=== PATIENT | female | born 1935 | race Caucasian/White ===

== ENCOUNTER 2018-11-10 13:27 | Observation (INO) ==
--- NOTE | 2018-11-10 16:40 | Internal Med History&Physical ---
Date of Encounter: 11/10/18 Time of Encounter: 16:40 Internal Medicine - H&P: HPI Chief complaint: Fall.Fracture of knee Admitted From: Intrahospital Transfer Plans for Post Hospital Care: Transfer Inp Rehab Fac History of present illness: Ms. SARABIA is a 82 year old female patient with history of hypertension, colon cancer status post colostomy in remission, seizure was transferred from [place] [facility] after finding bilateral knee fracture after having fall today morning. Patient had rolled down to bed and landed on knee when trying to get up but did not lose any consciousness. Her granddaughter rolled her up to the bed and she did not walk since then called EMS. EMS brought to [place] [facility] where initial investigation done with CT knee with concern of fracture bilaterally therefore called orthopedic surgeon at [facility] who accepted the patient. Initial lab at [place] with leukocytosis, hypokalemia. Upon my evaluation patient appeared quite comfortable complaining of knee pain otherwise no acute distress. Patient denies fever chills nausea vomiting headache dizziness chest pain short of breath abdominal pain diarrhea. Patient had intermittent cough with yellowish sputum. Patient had diarrhea 1 week ago but now resolved completely. Past Med Surg Social Fam HX - Family History Father Living Status: Hx Family Cardiac Disorders: Yes Internal Medicine - H&P: Meds Allergy/AdvReac Type Severity Reaction Status Date / Time Penicillins Allergy Hives Verified 11/10/18 16:25 Sulfa (Sulfonamide AdvReac Nausea Verified 11/10/18 16:25 Antibiotics) All Systems PM: A 10-system review of systems was performed and is negative for pertinent findings except as documented above in the HPI. - Constitutional Exam: General appearance: No acute distress, A&O X 3 Head exam: Atraumatic Eye exam: EOMI, PERRLA ENT exam: Moist oral mucosa Neck nontender, supple Respiratory exam: Clear to auscultation bilaterally no wheezes crackles or rales Cardiovascular exam: Regular rate and rhythm, no systolic murmur Abdominal exam: Soft, nontender, nondistended, positive bowel sounds Extremities exam: No calf tenderness, no pedal edema Present. Bilateral knee- swelling tenderness more on the right side with limited range of motion. Peripheral pulses palpable and equal. Lower extremity sensation intact Skin-no rash, warm, dry, a small superficial skin ulceration on right foot and right thigh-as per patient she has been scratching due to bug bite concern Neurological exam: Alert, awake, oriented 3, CN II-XII intact, no focal deficits. No facial droop. Normal speech. - Assessment and Plan (1) Knee fracture Current Visit: Yes Status: Acute Assessment and plan: Bilateral knee fracture after mechanical fall. CT of knee done it [place]. Patient did not loss consciousness. Patient was transferred from [facility] to [place] after getting accepted by our on-call orthopedic surgeon. Bedrest, fall precaution, pain management. Notified orthopedic surgeon. No plan for urgent surgery therefore will start cardiac diet. Possible surgical intervention on Monday therefore will keep patient nothing by mouth after Monday midnight. Will give IV fluid while patient nothing by mouth. (2) Hypokalemia Current Visit: Yes Status: Acute Assessment and plan: Potassium was 2.5 at [place] and got replaced. Will repeat BMP. Magnesium level also ordered. Potassium replacement if needed (3) Hypertension Current Visit: Yes Status: Acute Assessment and plan: High blood pressure. Will resume home medicine. Could also be due to underlying pain. Close monitoring of blood pressure Qualifiers: Hypertension type: unspecified Qualified Code(s): I10 - Essential (primary) hypertension (4) Leukocytosis Current Visit: Yes Status: Acute Assessment and plan: Based on [place] lab. Patient also has intermittent cough therefore chest x-ray will be ordered. Will consider antibiotic if any concern for pneumonia. Patient denies history of COPD. Incentive spirometry. DuoNeb and oxygen supplementation as needed Qualifiers: Leukocytosis type: unspecified Qualified Code(s): D72.829 - Elevated white blood cell count, unspecified (5) Hyperglycemia Current Visit: Yes Status: Acute Assessment and plan: Patient denies history of diabetes mellitus. High blood glucose level that could be due to a stress. Hemoglobin A1c, SSI, Accu-Chek ordered. (6) History of seizure Current Visit: Yes Status: Acute Assessment and plan: No active seizure. Continue home medicine (7) History of colon cancer Current Visit: Yes Status: Acute Assessment and plan: Status post colectomy and patient is on colostomy bag. In remission. Follow oncologist regularly yearly basis. Patient is still has port-therefore asked to discuss with oncologists about removal after discharge (8) DVT prophylaxis Current Visit: Yes Status: Acute Assessment and plan: Heparin subcutaneous. - Time Spent With Patient Total time spent is greater than 50% in coordination of care (as documented) at patient's floor/unit and/or counseling patient: 25 - 35 minutes
[2018-11-10] MEDS ORDERED: Ondansetron 4 MG/2 ML VIAL IVP PRN (17:06)
[2018-11-10] MEDS ORDERED: Naloxone 0.4 MG/ML INJ IVP PRN (17:06)
[2018-11-10] MEDS ORDERED: Ipratropium/Albuterol Neb 3 ML IH PRN (17:26)
[2018-11-10] MEDS ORDERED: Dextrose Gel 15 GM/37.5 ML TUBE PO PRN ×2 (17:27)
[2018-11-10] MEDS ORDERED: *HR* Dextrose 50 % in Water (Syg) 50 ML SYRINGE IVP PRN (17:27)
[2018-11-10] MEDS ORDERED: D5% in Water 1,000 ML IVC PRN (17:27)
[2018-11-10 17:58] LABS: Basophils % 0.2 %; Eosinophils % 0.1 %; Hematocrit 34.3 % (35.3-44.9); Hemoglobin 11.9 g/dL (11.5-15.4); Immature Granulocytes % 0.4 % (0-4); Lymphocytes # 0.5 K/mcL (0.6-4.6); Lymphocytes % 3.4 %; Mean Corpuscular HGB Conc 34.7 g/dL (31.6-35.5); Mean Corpuscular Hemoglobin 31.4 pg (28.0-33.3); Mean Corpuscular Volume 90.5 fL (83.0-100.0); Mean Platelet Volume 11.3 fL (9.4-12.4); Monocytes # 0.8 K/mcL (0.0-1.3); Monocytes % 5.1 %; Neutrophils # 13.6 K/mcL (1.6-8.9); Platelet Count 232 K/mcL (140-400); Red Blood Count 3.79 M/mcL (3.82-4.97); Red Cell Distribution Width 13.5 % (11.5-14.5); Segmented Neutrophils % 90.8 %
[2018-11-10 18:05] LABS: INR 1.1; Prothrombin Time 12.2 Seconds (9.4-12.1)
[2018-11-10 18:08] LABS: Activated Partial Thrombo Time 28.3 Seconds (26.0-36.0)
[2018-11-10 18:12] LABS: BUN/Creatinine Ratio 21 (6-26); Blood Urea Nitrogen 14 mg/dL (8-23); Calcium 8.7 mg/dL (8.6-10.3); Carbon Dioxide 24 mEq/L (23-29); Chloride 107 mEq/L (98-107); Glucose 121 mg/dL (70-105); Osmolality,Calculated 300 (280-300); Potassium 2.6 mEq/L (3.5-5.1); Sodium 144 mEq/L (136-145); eGFR For African Americans > 60 (> 60); eGFR For Non-African Americans > 60 (> 60)
[2018-11-10] MEDS: Acetaminophen 325 MG TABLET PO PRN (20:37)
[2018-11-10] MEDS: cloNIDine HCl 0.1 MG TABLET PO SCH (20:37)
[2018-11-10] MEDS: *HR* Heparin 5,000 UNIT/ML VIAL SQ SCH (20:38)
[2018-11-10] MEDS: levETIRAcetam 250 MG TABLET PO SCH (20:38)
[2018-11-10 21:09] LABS: Bilirubin,Urine Small (Negative); Blood,Urine Large (Negative); Clarity,Urine Clear (Clear); Color,Urine Yellow (Yellow); Glucose,Urine (UA) Normal (Normal); Ketones,Urine Negative (Negative); Leukocyte Esterase,Urine Small (Negative); Nitrite,Urine Negative (Negative); Protein,Urine 100 mg/dL (Neg-Trace); Specific Gravity,Urine 1.018 (1.010-1.025); Urobilinogen,Urine Normal (Normal)
[2018-11-10 21:11] LABS: Hyaline Casts,Urine None Seen per lpf (None-Few); WBC,Urine 15-30 per hpf (0-3)
[2018-11-10 21:19] LABS: Bacteria,Urine Few per hpf (None-Few); RBC,Urine 30-50 per hpf (0-3); Squamous Epithelial Cell,Urine Few per lpf (None-Few)
[2018-11-10] MEDS: Insulin LISPRO 300 UNITS/3 ML VIAL SQ SCH (21:51)
[2018-11-10] MEDS: *HR* OxyCODONE Oral Soln 5 MG/5 ML UD.LIQ PO PRN (23:58)
[2018-11-11] MEDS: *HR* Heparin 5,000 UNIT/ML VIAL SQ SCH ×3 (06:01→22:11)
[2018-11-11 06:17] LABS: Basophils % 0.2 %; Eosinophils # 0.1 K/mcL (0.0-0.6); Eosinophils % 0.9 %; Hematocrit 30.6 % (35.3-44.9); Immature Granulocytes % 0.5 % (0-4); Lymphocytes # 0.8 K/mcL (0.6-4.6); Lymphocytes % 7.3 %; Mean Corpuscular Hemoglobin 30.4 pg (28.0-33.3); Mean Corpuscular Volume 92.2 fL (83.0-100.0); Mean Platelet Volume 11.2 fL (9.4-12.4); Monocytes # 0.8 K/mcL (0.0-1.3); Monocytes % 7.4 %; Neutrophils # 8.9 K/mcL (1.6-8.9); Platelet Count 187 K/mcL (140-400); Red Blood Count 3.32 M/mcL (3.82-4.97); Red Cell Distribution Width 13.8 % (11.5-14.5); Segmented Neutrophils % 83.7 %; White Blood Count 10.6 K/mcL (4.3-11.1)
[2018-11-11 06:20] LABS: Hemoglobin 10.1 g/dL (11.5-15.4)
[2018-11-11 06:51] LABS: BUN/Creatinine Ratio 22 (6-26); Blood Urea Nitrogen 21 mg/dL (8-23); Calcium 7.7 mg/dL (8.6-10.3); Carbon Dioxide 25 mEq/L (23-29); Chloride 105 mEq/L (98-107); Glucose 108 mg/dL (70-105); Osmolality,Calculated 300 (280-300); Potassium 2.5 mEq/L (3.5-5.1); Sodium 143 mEq/L (136-145); eGFR For African Americans > 60 (> 60); eGFR For Non-African Americans 55 (> 60)
[2018-11-11] MEDS: Insulin LISPRO 300 UNITS/3 ML VIAL SQ SCH ×3 (07:35→16:40)
--- NOTE | 2018-11-11 07:36 | Orthopedic Consult Note ---
Date of Encounter: 11/11/18 Time of Encounter: 07:34 Assessment and Plan (1) Tibial plateau fracture Current Visit: Yes Status: Acute I did have a long discussion with the patient regarding the diagnosis. She has bilateral tibial plateau fractures with minimal impaction on the right. Given the patient's age and activity level recommendations for nonoperative management in the form of nonweightbearing on the bilateral lower extremities and knee immo bilizers. She will be bed to chair and can pivot, but no ambulation at this point. Consulted physical and occupational therapy and I anticipate the need for rehabilitation facility upon discharge. Follow-up in one week for repeat x- rays of the bilateral knees or sooner if needed. She can follow-up sooner for any new or worsening concerns before then. I have reviewed each of the pertinent components of this chart and any other pertinent medical component(s) including but not limited to pertinent application of the chief complaint, history of present illness, current medication, medical history, allergies, family history, medical history, surgical history, social history, review of systems, vital signs, and any other portion of the pertinent patient medical record directly or indirectly involved with this patient care that is pertinent based on my medical decision process. STEFANI Oneill Qualifiers: Qualified Code(s): S82.143A - Displaced bicondylar fracture of unspecified tibia, initial encounter for closed fracture History of Present Illness HPI: Ms. SARABIA is a 82 year old female admitted to the hospitalist. She had a fall yesterday while trying to get out of bed and sustained bilateral tibial plateau fractures. She has sharp and achy pains localized to the bilateral knees, worse with use and movement and better with rest. Pain is currently well controlled. She denies any other pains. She denies numbness, tingling, or any other associated signs or symptoms or modifying factors otherwise. Past Med Surg Social Fam HX - Past Medical History Medical history: GERD, hypertension, seizures Additional medical history: colon cancer - Past Surgical History Surgical History: colostomy Additional surgical history: port - Social History Smoking Status: Never smoker Smokeless Tobacco Status: No Alcohol use: none Drug use: none - Family History Father Living Status: Hx Family Cardiac Disorders: Yes Medications and Allergies Cyanocobalamin (Vitamin B-12) [Vitamin B-12] 1,000 mcg PO DAILY 11/10/18 [His tory] Ferrous Sulfate [Iron] 325 mg PO DAILY 11/10/18 [History] Fluticasone Propionate Nasal [Flonase] 1 spray .ROUTE DAILY 11/10/18 [History] Lisinopril [Zestril] 20 mg PO BID 11/10/18 [History] Magnesium Oxide [Magnesium] 400 mg PO BID 11/10/18 [History] Metoprolol Tartrate [Lopressor] 25 mg PO BID 11/10/18 [History] Pantoprazole Sodium [Protonix] 40 mg PO DAILY 11/10/18 [History] amLODIPine [Norvasc] 10 mg PO DAILY 11/10/18 [History] cloNIDine HCl [CloNIDine HCl] 0.1 mg PO BID 11/10/18 [History] levETIRAcetam [Keppra] 250 mg PO BID 11/10/18 [History] Allergy/AdvReac Type Severity Reaction Status Date / Time Penicillins Allergy Hives Verified 11/10/18 16:25 Sulfa (Sulfonamide AdvReac Nausea Verified 11/10/18 16:25 Antibiotics) All Systems Reviewed: Constitutional -The patient denies any fevers, chills, or feelings of illness Neurologic -The patient denies any numbness, tingling, or burning pains Physical Exam - Constitutional Vitals: Temp Pulse Resp BP Pulse Ox 99.0 F 66 18 131/64 88 11/11/18 06:55 11/11/18 06:55 11/11/18 06:55 11/11/18 06:55 11/11/18 06:55 Constitutional -Vitals reviewed -The patient is well developed and well nourished. -Mood is pleasant. -The patient is well groomed. Psychiatric -The patient is fully alert and oriented x 3. Respiratory: -Respiratory effort normal Abdomen: -Soft abdomen -Non tender -Non distended: Left upper extremity: -No deformities. The overlying skin is intact. No obvious signs of acute trauma. -No tenderness to palpation throughout. -No significant pain with passive motion of the shoulder, elbow, wrist, and fingers within the limits of the bed. -Able to make an "OK" sign, cross the index and long fingers, and extend the thumb. -Sensation grossly intact to light touch throughout the median, radial, and ulnar distributions. -Radial pulse is present; Fingers have good capillary refill. Right upper extremity: -No deformities. The overlying skin is intact. No obvious signs of acute trauma. -No tenderness to palpation throughout. -No significant pain with passive motion of the shoulder, elbow, wrist, and fingers within the limits of the bed. -Able to make an "OK" sign, cross the index and long fingers, and extend the thumb. -Sensation grossly intact to light touch throughout the median, radial, and ulnar distributions. -Radial pulse is present; Fingers have good capillary refill. Left lower extremity: -No deformities. The overlying skin is intact. Moderate swelling of the knee. -Tenderness to palpation over the knee -Like compartments are soft and compressible. -No pain with passive motion of the hip, ankle, and toes within the limits of the bed. -Able to dorsiflex and plantarflex the ankle and toes. -Sensation is grossly intact to light touch throughout the sural, saphenous, superficial peroneal, and deep peroneal distributions. -Toes have good capillary refill. Right lower extremity: -No deformities. The overlying skin is intact. Moderate swelling of the knee. -Tenderness to palpation over the knee -Like compartments are soft and compressible. -No pain with passive motion of the hip, ankle, and toes within the limits of the bed. -Able to dorsiflex and plantarflex the ankle and toes. -Sensation is grossly intact to light touch throughout the sural, saphenous, superficial peroneal, and deep peroneal distributions. -Toes have good capillary refill. Diagnostic Imaging: I did personally review and interpret x-rays of the bilateral knees and CT scans obtained from the referring facility. On the right she has a subtle minimally displaced lateral plateau fracture. On the left side she has a similar fracture with less depression. Results - Labs Result Diagrams: 11/11/18 05:55 11/11/18 05:55 Labs: Abnormal lab results WBC 15.0 K/mcL (4.3-11.1) H 11/10/18 17:39 RBC 3.32 M/mcL (3.82-4.97) L 11/11/18 05:55 Hgb 10.1 g/dL (11.5-15.4) L D 11/11/18 05:55 Hct 30.6 % (35.3-44.9) L 11/11/18 05:55 13.6 K/mcL (1.6-8.9) H 11/10/18 17:39 0.5 K/mcL (0.6-4.6) L 11/10/18 17:39 PT 12.2 Seconds (9.4-12.1) H 11/10/18 17:39 Potassium 2.5 mEq/L (3.5-5.1) L* 11/11/18 05:55 Est GFR (Non-Af Amer) 55 (> 60) L 11/11/18 05:55 Glucose 108 mg/dL (70-105) H 11/11/18 05:55 Calcium 7.7 mg/dL (8.6-10.3) L 11/11/18 05:55 Magnesium 1.2 mg/dL (1.6-2.6) L 11/10/18 17:39 100 mg/dL (Neg-Trace) H 11/10/18 20:57 Large (Negative) H 11/10/18 20:57 Small (Negative) H 11/10/18 20:57 Ur Leukocyte Esterase Small (Negative) H 11/10/18 20:57 30-50 per hpf (0-3) H 11/10/18 20:57 15-30 per hpf (0-3) H 11/10/18 20:57 H & H 11/10/18 11/11/18 Range/Units 17:39 05:55 Hgb 11.9 10.1 L D (11.5-15.4) g/dL Hct 34.3 L 30.6 L (35.3-44.9) % All other labs normal. Consult Discharge Plan - Plan Referrals: NONE,PCP [Primary Care Provider] -
[2018-11-11] MEDS ORDERED: amLODIPine 5 MG TABLET PO SCH (09:00)
[2018-11-11] MEDS: cloNIDine HCl 0.1 MG TABLET PO SCH ×2 (09:23→22:11)
[2018-11-11] MEDS: Pantoprazole 40 MG VIAL IVP SCH (09:23)
[2018-11-11] MEDS: levETIRAcetam 250 MG TABLET PO SCH ×2 (09:24→22:11)
[2018-11-11] MEDS: Acetaminophen 325 MG TABLET PO PRN (09:31)
--- NOTE | 2018-11-11 11:48 | Internal Med Progress Note ---
Hospitalist Progress Note - Encounter Date of Encounter: 11/11/18 Time of Encounter: 12:37 - Subjective Interval History: No acute event overnight. Patient resting comfortably on bed. Pain is adequately controlled. Review the lab with normal white count, low potassium. Review of the vitals with mild bradycardia and low normal blood pressure. Denies fever chills nausea vomiting headache dizziness chest pain shortness of breath abdominal pain diarrhea - Exam Vitals: Temp Pulse Resp BP Pulse Ox 98.9 F 58 16 91/51 90 11/11/18 11:24 11/11/18 11:24 11/11/18 11:24 11/11/18 11:24 11/11/18 11:24 Exam: General appearance: No acute distress, A&O X 3 Eye exam: EOMI, PERRLA ENT exam: Moist oral mucosa Neck nontender, supple Respiratory exam: Clear to auscultation bilaterally no wheezes crackles or rales Cardiovascular exam: Regular rate and rhythm, no systolic murmur Abdominal exam: Soft, nontender, nondistended, positive bowel sounds Extremities exam: No calf tenderness, no pedal edema Present. Bilateral knee- swelling tenderness more on the right side with limited range of motion. Peripheral pulses palpable and equal. Lower extremity sensation intact Skin-no rash, warm, dry, a small superficial skin ulceration on right foot and right thigh-as per patient she has been scratching due to bug bite concern Neurological exam: CN II-XII intact, no focal deficits. No facial droop. Normal speech. - Assessment and Plan (1) Knee fracture Current Visit: Yes Status: Acute Assessment and Plan: Bilateral knee fracture after mechanical fall. CT of knee done it [place]. Patient did not loss consciousness. Patient was transferred from [facility] to [place] after getting accepted by our on-call orthopedic surgeon. Patient has bilateral tibial plateau fracture. Orthopedic surgeon is seen in recommended bed to chair and can pivot, but no ambulation at this point. Consulted PT OT. wicker worker for discharge plan for possible inpatient rehabilitation. Possible discharge on Monday Continue pain management and supportive treatment (2) Hypokalemia Current Visit: Yes Status: Acute Assessment and Plan: Low potassium. Replacement and monitor (3) Hypertension Current Visit: Yes Status: Acute Assessment and Plan: Low blood pressure. Therefore hold amlodipine and lowered the dose of beta michelle. Continue clonidine with the concern of rebound hypertension if abruptly stopped (4) Leukocytosis Current Visit: Yes Status: Acute Assessment and Plan: Improved. Patient denies history of COPD. Incentive spirometry. DuoNeb and oxygen supplementation as needed Chest x-ray IMPRESSION: Scattered linear opacities may represent chronic lung change or atelectasis. (5) Hyperglycemia Current Visit: Yes Status: Acute Assessment and Plan: Patient denies history of diabetes mellitus. Better controlled. Hemoglobin A1c ending, SSI, Accu-Chek (6) History of seizure Current Visit: Yes Status: Acute Assessment and Plan: No active seizure. Continue home medicine (7) History of colon cancer Current Visit: Yes Status: Acute Assessment and Plan: Status post colectomy and patient is on colostomy bag. In remission. Follow oncologist regularly yearly basis. Patient is still has port-therefore asked to discuss with oncologists about removal after discharge (8) DVT prophylaxis Current Visit: Yes Status: Acute Assessment and Plan: Heparin subcutaneous. - Time Spent with Patient Total time spent is greater than 50% in coordination of care (as documented) at patient's floor/unit and/or counseling patient: 25 - 35 minutes Internal Medicine: Result - Labs CBC & Chem 7: 11/11/18 05:55 11/11/18 12:49 Labs: Short CBC 11/10/18 11/11/18 Range/Units 17:39 05:55 WBC 15.0 H 10.6 (4.3-11.1) K/mcL Hgb 11.9 10.1 L D (11.5-15.4) g/dL Hct 34.3 L 30.6 L (35.3-44.9) % Plt Count 232 187 (140-400) K/mcL Neutrophils # 13.6 H 8.9 (1.6-8.9) K/mcL BMP 11/10/18 11/11/18 17:39 05:55 Sodium 144 143 Potassium 2.6 L 2.5 L* Chloride 107 105 Carbon Dioxide 24 25 BUN 14 21 Creatinine 0.67 0.97 Glucose 121 H 108 H Calcium 8.7 7.7 L Urine 11/10/18 Range/Units 20:57 Urine Color Yellow (Yellow) Urine Clarity Clear (Clear) Urine pH 6.0 (5.0-8.0) pH Units Ur Specific [place] 1.018 (1.010-1.025) Urine Protein 100 H (Neg-Trace) mg/dL Urine Glucose (UA) Normal (Normal) mg/dL - ABG Interpretation ABG results: PT/INR, D-dimer PT 12.2 Seconds (9.4-12.1) H 11/10/18 17:39 - Impressions Impressions Chest X-Ray 11/10/18 17:25 IMPRESSION: Scattered linear opacities may represent chronic lung change or atelectasis. D/ / Ming Sotelo MD / Ming Sotelo MD Interpreting Provider: Ming Sotelo MD Consult Discharge Plan - Plan Referrals: NONE,PCP [Primary Care Provider] - (3) Hypertension Qualifiers: Hypertension type: unspecified Qualified Code(s): I10 - Essential (primary) hypertension (4) Leukocytosis Qualifiers: Leukocytosis type: unspecified Qualified Code(s): D72.829 - Elevated white blood cell count, unspecified
[2018-11-11 13:26] LABS: BUN/Creatinine Ratio 24 (6-26); Blood Urea Nitrogen 24 mg/dL (8-23); Calcium 7.7 mg/dL (8.6-10.3); Carbon Dioxide 25 mEq/L (23-29); Chloride 102 mEq/L (98-107); Glucose 115 mg/dL (70-105); Magnesium 1.9 mg/dL (1.6-2.6); Osmolality,Calculated 295 (280-300); Potassium 2.9 mEq/L (3.5-5.1); Sodium 140 mEq/L (136-145); eGFR For African Americans > 60 (> 60); eGFR For Non-African Americans 53 (> 60)
[2018-11-11] MEDS: *HR* OxyCODONE Oral Soln 5 MG/5 ML UD.LIQ PO PRN (22:11)
[2018-11-12] MEDS: Insulin LISPRO 300 UNITS/3 ML VIAL SQ SCH ×5 (05:21→20:13)
[2018-11-12] MEDS: *HR* Heparin 5,000 UNIT/ML VIAL SQ SCH (05:30)
[2018-11-12] MEDS: *HR* OxyCODONE Oral Soln 5 MG/5 ML UD.LIQ PO PRN ×2 (05:30→20:20)
[2018-11-12 06:55] LABS: Basophils % 0.3 %; Eosinophils # 0.2 K/mcL (0.0-0.6); Eosinophils % 1.9 %; Hematocrit 28.8 % (35.3-44.9); Hemoglobin 9.6 g/dL (11.5-15.4); Immature Granulocytes % 0.5 % (0-4); Lymphocytes # 0.8 K/mcL (0.6-4.6); Lymphocytes % 7.3 %; Mean Corpuscular HGB Conc 33.3 g/dL (31.6-35.5); Mean Corpuscular Hemoglobin 31.4 pg (28.0-33.3); Mean Corpuscular Volume 94.1 fL (83.0-100.0); Mean Platelet Volume 11.2 fL (9.4-12.4); Monocytes # 0.8 K/mcL (0.0-1.3); Monocytes % 7.5 %; Platelet Count 173 K/mcL (140-400); Red Blood Count 3.06 M/mcL (3.82-4.97); Red Cell Distribution Width 13.7 % (11.5-14.5); Segmented Neutrophils % 82.5 %; White Blood Count 10.9 K/mcL (4.3-11.1)
[2018-11-12 07:14] LABS: BUN/Creatinine Ratio 35 (6-26); Blood Urea Nitrogen 30 mg/dL (8-23); Calcium 7.9 mg/dL (8.6-10.3); Carbon Dioxide 25 mEq/L (23-29); Chloride 104 mEq/L (98-107); Glucose 127 mg/dL (70-105); Osmolality,Calculated 296 (280-300); Potassium 2.9 mEq/L (3.5-5.1); Sodium 139 mEq/L (136-145); eGFR For African Americans > 60 (> 60); eGFR For Non-African Americans > 60 (> 60)
[2018-11-12 07:15] LABS: Estimated Average Glucose 91 mg/dl
--- NOTE | 2018-11-12 07:42 | Orthopedics Progress Note ---
Date of Encounter: 11/12/18 Time of Encounter: 07:40 - Assessment and Plan (1) Tibial plateau fracture Current Visit: Yes Status: Acute Qualifiers: Qualified Code(s): S82.143A - Displaced bicondylar fracture of unspecified tibia, initial encounter for closed fracture Subjective Interval history: S: Resting comfortably in bed without any new complaints. Pain control to the bilateral knees O: Afebrile on the vital signs are stable The immobilizers on both knees Neurovascularly intact distally A: Bilateral tibial plateau fractures P: Nonweightbearing on the bilateral lower extremities The immobilizers to the bilateral knees PT/OT Follow-up with [facility] in 1 week for repeat x-ray the bilateral knees Recommend DVT prophylaxis for 4 weeks upon discharge, aspirin 325 mg by mouth daily if no contraindications Objective Vital signs: Vital Signs Temp Pulse Resp BP Pulse Ox 11/12/18 07:26 97.6 F 53 16 120/69 95 11/12/18 04:17 97.6 F 78 18 102/56 92 11/12/18 00:05 98.7 F 63 17 102/59 93 11/11/18 20:09 98.7 F 68 18 122/70 95 11/11/18 16:44 97.6 F 62 16 108/55 95 11/11/18 11:24 98.9 F 58 16 91/51 90 Intake and Output 11/11/18 11/11/18 11/12/18 15:59 23:59 07:59 Intake Total 104 / 404 0 / 0 Output Total 500 / 550 Balance -396 / -146 0 / 0 Intake: IV Fluids 104 / 104 Magnesium Sulfate 2 GM In 0.9 % 104 / 104 Sodium Chloride 100 ML @ 104 mls/hr IVPB ONCE ONE Rx#: [id number] Oral 0 / 0 Output: Stool 500 / 500 Other: Stool Size Moderate Stool Consistency liquid Stool Color Brown # Voids 1 # Urine Diapers 1 Blood Glucose* 131 111 136 - Labs CBC & BMP: 11/12/18 06:35 11/12/18 06:35 Labs: Abnormal lab results WBC 15.0 K/mcL (4.3-11.1) H 11/10/18 17:39 RBC 3.06 M/mcL (3.82-4.97) L 11/12/18 06:35 Hgb 9.6 g/dL (11.5-15.4) L 11/12/18 06:35 Hct 28.8 % (35.3-44.9) L 11/12/18 06:35 9.0 K/mcL (1.6-8.9) H 11/12/18 06:35 0.5 K/mcL (0.6-4.6) L 11/10/18 17:39 PT 12.2 Seconds (9.4-12.1) H 11/10/18 17:39 Potassium 2.9 mEq/L (3.5-5.1) L 11/12/18 06:35 BUN 30 mg/dL (8-23) H 11/12/18 06:35 Est GFR (Non-Af Amer) 53 (> 60) L 11/11/18 12:49 35 (6-26) H 11/12/18 06:35 Glucose 127 mg/dL (70-105) H 11/12/18 06:35 POC Glucose 121 mg/dL (70-99) H 11/11/18 16:40 Calcium 7.9 mg/dL (8.6-10.3) L 11/12/18 06:35 Magnesium 1.2 mg/dL (1.6-2.6) L 11/10/18 17:39 100 mg/dL (Neg-Trace) H 11/10/18 20:57 Large (Negative) H 11/10/18 20:57 Small (Negative) H 11/10/18 20:57 Ur Leukocyte Esterase Small (Negative) H 11/10/18 20:57 30-50 per hpf (0-3) H 11/10/18 20:57 15-30 per hpf (0-3) H 11/10/18 20:57 Consult Discharge Plan - Plan Referrals: NONE,PCP [Primary Care Provider] -
[2018-11-12] MEDS: cloNIDine HCl 0.1 MG TABLET PO SCH ×2 (08:39→20:20)
[2018-11-12] MEDS: Pantoprazole 40 MG VIAL IVP SCH (08:39)
[2018-11-12] MEDS: levETIRAcetam 250 MG TABLET PO SCH ×2 (08:39→20:20)
--- NOTE | 2018-11-12 14:41 | Internal Med Progress Note ---
Hospitalist Progress Note - Encounter Date of Encounter: 11/12/18 Time of Encounter: 14:38 - Subjective Interval History: Doing well today, pain is well controlled, appetite is good, waiting to go to SNF. No SOB, CP, N/V/D. - Exam Vitals: Temp Pulse Resp BP Pulse Ox 97.6 F 53 16 120/69 92 11/12/18 07:26 11/12/18 07:26 11/12/18 07:26 11/12/18 07:26 11/12/18 09:00 Exam: General appearance: No acute distress, A&O X 3, elderly Respiratory exam: Clear to auscultation bilaterally no wheezes or crackles Cardiovascular exam: Regular rate and rhythm, no systolic murmur Abdominal exam: Soft, nontender Extremities exam: No calf tenderness, no pedal edema present. Bilateral knee- swelling tenderness more on the right side with limited range of motion. Peripheral pulses palpable and equal. Skin-no rash, warm, dry, a small superficial skin ulceration on right foot and right thigh-as per patient she has been scratching due to bug bite concern Neurological exam: CN II-XII intact, Normal speech. - Summary of Assessment and Plan Summary of Assessment and Plan: B/l tibial plateau fractures: - Ortho following, non-op management - NWB - PT/OT - Xarelto ppx - SW consulted for SNF placement - f/u ortho 1 week Hypokalemia: replace and monitor, check Mg Mild normocytic anemia: monitor, no s/sx blood loss at this time HTN: controlled on home clonidine and lopressor Hx seizure: home keppra Hx colon cancer: s/p colectomy and has ostomy, still has port which should be considered for removal PPx: lovenox FEN: cardiac, no MIVF Lines: PIV Consults: Ortho Code: Full Dispo: patient requires inpatient eval and management at this time. Anticipate 1-2 days. Awaiting SNF Internal Medicine: Result - Labs CBC & Chem 7: 11/12/18 06:35 11/12/18 06:35 Labs: Short CBC 11/12/18 Range/Units 06:35 WBC 10.9 (4.3-11.1) K/mcL Hgb 9.6 L (11.5-15.4) g/dL Hct 28.8 L (35.3-44.9) % Plt Count 173 (140-400) K/mcL Neutrophils # 9.0 H (1.6-8.9) K/mcL BMP 11/12/18 06:35 Sodium 139 Potassium 2.9 L Chloride 104 Carbon Dioxide 25 BUN 30 H Creatinine 0.85 Glucose 127 H Calcium 7.9 L - ABG Interpretation ABG results: PT/INR, D-dimer PT 12.2 Seconds (9.4-12.1) H 11/10/18 17:39 Consult Discharge Plan - Plan Referrals: NONE,PCP [Primary Care Provider] -
[2018-11-12] MEDS ORDERED: *HR* Rivaroxaban 10 MG TABLET PO SCH (17:00)
[2018-11-13] MEDS: *HR* OxyCODONE Oral Soln 5 MG/5 ML UD.LIQ PO PRN ×2 (03:14→14:39)
[2018-11-13 06:37] LABS: BUN/Creatinine Ratio 34 (6-26); Blood Urea Nitrogen 27 mg/dL (8-23); Calcium 8.2 mg/dL (8.6-10.3); Carbon Dioxide 24 mEq/L (23-29); Chloride 109 mEq/L (98-107); Glucose 112 mg/dL (70-105); Magnesium 1.6 mg/dL (1.6-2.6); Osmolality,Calculated 296 (280-300); Potassium 4.1 mEq/L (3.5-5.1); Sodium 140 mEq/L (136-145); eGFR For African Americans > 60 (> 60); eGFR For Non-African Americans > 60 (> 60)
[2018-11-13] MEDS: Insulin LISPRO 300 UNITS/3 ML VIAL SQ SCH ×4 (07:29→20:15)
[2018-11-13] MEDS: Pantoprazole 40 MG VIAL IVP SCH (08:50)
[2018-11-13] MEDS: levETIRAcetam 250 MG TABLET PO SCH ×2 (08:50→20:19)
[2018-11-13] MEDS: cloNIDine HCl 0.1 MG TABLET PO SCH ×2 (08:50→20:19)
[2018-11-13] MEDS ORDERED: *HR* Rivaroxaban 10 MG TABLET PO ONE (09:00)
--- NOTE | 2018-11-13 12:35 | Internal Med Progress Note ---
Hospitalist Progress Note - Encounter Date of Encounter: 11/13/18 Time of Encounter: 12:30 - Subjective Interval History: Pt denies acute needs or complaints. Looking forward to going to rehab. Denies CP, SOB, N/V/D. - Exam Vitals: Temp Pulse Resp BP Pulse Ox 98.2 F 70 14 127/73 96 11/13/18 12:06 11/13/18 12:06 11/13/18 12:06 11/13/18 12:06 11/13/18 12:06 Exam: General: NAD, good eye contact, well appearing, elderly Thoracic: Normal breath sounds b/l, no wheezing or crackles Cardio: Normal S1 and S2, regular rate and rhythm Abdomen: Soft, nontender Extremities: Warm, well perfused. DP pulses 2+ b/l. No pedal edema. R knee wrapped. Skin: does have small R foot and R thigh excoriations Neuro: Awake, fully oriented. Speech fluent - Summary of Assessment and Plan Summary of Assessment and Plan: Ericka Morales is an 82F w hx HTN, seizures, colon cancer s/p colectomy w ostomy, who p/w b/l knee pain B/l tibial plateau fractures: seen on OSH imaging - Ortho following, non-op management - NWB - PT/OT - Xarelto ppx - SW consulted for SNF placement - f/u ortho 1 week Hypokalemia: resolved Hypomagnesemia: replace and monitor Mild normocytic anemia: monitor, no s/sx blood loss at this time HTN: controlled on home clonidine and lopressor Hx seizure: home keppra Hx colon cancer: s/p colectomy and has ostomy, still has port which should be considered for removal PPx: lovenox FEN: cardiac, no MIVF Lines: PIV Consults: Ortho Code: Full Dispo: patient requires inpatient eval and management at this time. Anticipate today or tomorrow discharge. Awaiting insurance auth for SNF Internal Medicine: Result - Labs CBC & Chem 7: 11/12/18 06:35 11/13/18 05:58 Labs: BMP 11/13/18 05:58 Sodium 140 Potassium 4.1 D Chloride 109 H Carbon Dioxide 24 BUN 27 H Creatinine 0.79 Glucose 112 H Calcium 8.2 L - ABG Interpretation ABG results: PT/INR, D-dimer PT 12.2 Seconds (9.4-12.1) H 11/10/18 17:39 Consult Discharge Plan - Plan Referrals: NONE,PCP [Primary Care Provider] -
--- NOTE | 2018-11-13 15:44 | Discharge Summary ---
Date of Encounter: 11/14/18 Time of Encounter: 08:15 Hospital course: Dear Doctors, I recently had the opportunity to care for this patient during their recent hospital stay at [facility]. Ericka Morales is an 82F w hx HTN, seizures, colon cancer s/p colectomy w ostomy, who presented with b/l knee pain after a fall. She rolled out of bed and landed on her knees, and then was unable to get up or bear any weight. Pt went to [facility] ED, where CT knee showed b/l tibial fractures. Transferred to [facility] for Ortho consultation. In the hospital, pt seen by Ortho who recommended conservative, non-op management and non-weight bearing with knee immobilizers for several weeks. Dx: bilateral tibial plateau fractures, hypokalemia Pertinent tests/consults: Ortho consultation Follow up: Ortho 1 week Tests pending: none Med changes: new ASA 325 bid x25 days, new omeprazole 20 daily x25 days Mental status: awake, fully oriented Code status: Psychiatric Nursing Assistant spent on discharge: 25 minutes It has been my pleasure participating in this patient's care. Please contact me with any questions or concerns regarding their hospital stay. Sincerely, Austin Alvarado MD - Discharge Medications Prescriptions: New Aspirin 325 mg PO BID #50 tablet Omeprazole [PriLOSEC] 20 mg PO DAILY #25 capsule.dr Continued Pantoprazole Sodium [Protonix] 40 mg PO DAILY Metoprolol Tartrate [Lopressor] 25 mg PO BID Magnesium Oxide [Magnesium] 400 mg PO BID Lisinopril [Zestril] 20 mg PO BID levETIRAcetam [Keppra] 250 mg PO BID Fluticasone Propionate Nasal [Flonase] 1 spray .ROUTE DAILY Ferrous Sulfate [Iron] 325 mg PO DAILY Cyanocobalamin (Vitamin B-12) [Vitamin B-12] 1,000 mcg PO DAILY amLODIPine [Norvasc] 10 mg PO DAILY cloNIDine HCl [CloNIDine HCl] 0.1 mg PO BID Ergocalciferol (VITAMIN D2) [Vitamin D2] 50,000 unit PO MO Home Medications: Cyanocobalamin (Vitamin B-12) [Vitamin B-12] 1,000 mcg PO DAILY 11/10/18 [History] Ferrous Sulfate [Iron] 325 mg PO DAILY 11/10/18 [History] Fluticasone Propionate Nasal [Flonase] 1 spray .ROUTE DAILY 11/10/18 [History] Lisinopril [Zestril] 20 mg PO BID 11/10/18 [History] Magnesium Oxide [Magnesium] 400 mg PO BID 11/10/18 [History] Metoprolol Tartrate [Lopressor] 25 mg PO BID 11/10/18 [History] Pantoprazole Sodium [Protonix] 40 mg PO DAILY 11/10/18 [History] amLODIPine [Norvasc] 10 mg PO DAILY 11/10/18 [History] cloNIDine HCl [CloNIDine HCl] 0.1 mg PO BID 11/10/18 [History] levETIRAcetam [Keppra] 250 mg PO BID 11/10/18 [History] Ergocalciferol (VITAMIN D2) [Vitamin D2] 50,000 unit PO MO 11/11/18 [History] Aspirin 325 mg PO BID #50 tablet 11/14/18 [Rx] Omeprazole [PriLOSEC] 20 mg PO DAILY #25 capsule. 11/14/18 [Rx] Allergies/Adverse Reactions: Allergy/AdvReac Type Severity Reaction Status Date / Time Penicillins Allergy Hives Verified 11/11/18 16:45 Sulfa (Sulfonamide AdvReac Nausea Verified 11/11/18 16:45 Antibiotics) Date of admission: 11/10/18 16:00 Primary care physician: PCP NONE Consults: 11/10/18 17:13 Consult to Orthopedic Surgery [CONS] Routine Consulting Provider: [facility]oped[facility] Reason for Consult: Bilateral knee fracture Call Completed: Yes 11/10/18 17:22 Consult to Wallpaper Embosser Helper [CONS] Routine Reason for SW Consult: Discharge plan 11/11/18 08:01 Consult to Occupational Therapy [CONS] Routine Comment: Evaluate, develop and implement POC Reason for Consult: Generalized weakness Does patient have active BEDREST order?: No Is patient medically & hemodynamically stable?: Yes Patient assessed for mobility or mobilized this visit?: No Consult to Physical Therapy [CONS] Routine Comment: Evaluate, develop and implement POC Reason for Consult: Generalized weakness Does patient have active BEDREST order?: No Is patient medically & hemodynamically stable?: Yes Patient assessed for mobility or mobilized this visit?: No - Constitutional Vitals: Temp 97.6 F 11/14/18 07:02 Pulse 60 11/14/18 07:02 Resp 16 11/14/18 07:02 BP 138/80 11/14/18 07:02 Pulse Ox 95 11/14/18 07:02 Exam: General: NAD, good eye contact, well appearing, elderly Thoracic: Normal breath sounds b/l, no wheezing or crackles Cardio: Normal S1 and S2, regular rate and rhythm Abdomen: Soft, nontender Extremities: Warm, well perfused. DP pulses 2+ b/l. No pedal edema. R knee wrapped. Skin: does have small R foot and R thigh excoriations Neuro: Awake, fully oriented. Speech fluent - Patient Status Disposition: Transfer SNF Condition: Fair Functional capacity at discharge: wheelchair bound Overall status at discharge: patient is progressing back to baseline - Discharge Instructions Follow Up With: NONE,PCP [Primary Care Provider] - Mario Lora MD [Partnered Physician] - (1 week) - Diet and Activity Activity: as per physical therapy (non-weight bearing until Ortho approves) Diet: advance to your usual diet
[2018-11-13] MEDS: Aspirin 325 MG TABLET PO SCH (20:18)
[2018-11-13] MEDS: *HR* HYDROcodone/Acet 5/325 mg TABLET PO PRN (20:19)
[2018-11-14] MEDS: Insulin LISPRO 300 UNITS/3 ML VIAL SQ SCH ×3 (07:40→16:00)
[2018-11-14] MEDS: levETIRAcetam 250 MG TABLET PO SCH (08:22)
[2018-11-14] MEDS: cloNIDine HCl 0.1 MG TABLET PO SCH (08:22)
[2018-11-14] MEDS: Aspirin 325 MG TABLET PO SCH (08:22)
[2018-11-14] MEDS: *HR* HYDROcodone/Acet 5/325 mg TABLET PO PRN ×2 (08:22→16:30)
--- NOTE | 2018-11-14 11:35 | Physician Discharge Referral ---
ExtendedCare Referral Info Transfer To: SNF Provider in Charge after Transfer: PCP Institutional Level of Care: Skilled - Transfer Medications Prescriptions: Aspirin 325 mg PO BID #50 tablet Omeprazole [PriLOSEC] 20 mg PO DAILY #25 capsule. Home Medications: Cyanocobalamin (Vitamin B-12) [Vitamin B-12] 1,000 mcg PO DAILY 11/10/18 [History] Ferrous Sulfate [Iron] 325 mg PO DAILY 11/10/18 [History] Fluticasone Propionate Nasal [Flonase] 1 spray .ROUTE DAILY 11/10/18 [History] Lisinopril [Zestril] 20 mg PO BID 11/10/18 [History] Magnesium Oxide [Magnesium] 400 mg PO BID 11/10/18 [History] Metoprolol Tartrate [Lopressor] 25 mg PO BID 11/10/18 [History] Pantoprazole Sodium [Protonix] 40 mg PO DAILY 11/10/18 [History] amLODIPine [Norvasc] 10 mg PO DAILY 11/10/18 [History] cloNIDine HCl [CloNIDine HCl] 0.1 mg PO BID 11/10/18 [History] levETIRAcetam [Keppra] 250 mg PO BID 11/10/18 [History] Ergocalciferol (VITAMIN D2) [Vitamin D2] 50,000 unit PO MO 11/11/18 [History] Aspirin 325 mg PO BID #50 tablet 11/14/18 [Rx] Omeprazole [PriLOSEC] 20 mg PO DAILY #25 capsule. 11/14/18 [Rx] Allergies/Adverse Reactions: Allergy/AdvReac Type Severity Reaction Status Date / Time Penicillins Allergy Hives Verified 11/11/18 16:45 Sulfa (Sulfonamide AdvReac Nausea Verified 11/11/18 16:45 Antibiotics) - Respiratory Orders Smoking Cessation: Smoking cessation has been advised. For more information, call the Medicine in Practice Tobacco Quit Line at 4-827-KKQK-NOW. - Ancillary Orders May use pressure relief devices daily prn, May go on ESTRADA w/family/respon constitution party w/meds at nurse discretion PRN, May consult with Dentist, Tire Trimmer Hand, Bale Coverer PRN - Advance Directives Code Status: Full Code - Mobility Orders Other (wheelchair due to non-weight bearing) - Rehabiliation Orders Rehab Potential: Good Rehab Orders: ROM Exercises, Evaluation for Physical Therapy, Evaluation for Occupational Therapy - Treatments Skin tear care topically daily PRN per policy - Diet Orders Regular CERTIFICATION: I certify that the transfer of the above named patient to an Extended Care Facility is necessary for the continuing treatment of the diagnosis listed. The above information is true and accurate reflection of patient's current condition. Confidential - Redisclosure prohibited without a patient's written consent.
[2018-11-14 15:25] VITALS: BP 176/71
== END 2018-11-14 18:39 ==
LOC: 3NENU → SUATTDRO 17:06
PROVIDERS: ADMIT Internal Medicine Nephrology; ATTEND Internal Medicine